=== PATIENT | female | born 1985 | race Caucasian/White ===

== ENCOUNTER 2018-05-08 10:13 | Inpatient (IN) | payer OTHER ==
[~2018-05-08] VITALS: Ht 170.2 cm; Wt 148.6 kg
[2018-05-08] MEDS: LACTATED RINGERS 1,000 ML IV SCH ×6 (10:19→23:12)
[2018-05-08] MEDS ORDERED: OXYTOCIN 30U/ 0.9% NaCL 500ML 500 ML IV SCH (10:19)
[2018-05-08] MEDS ORDERED: METOCLOPRAMIDE 5 MG/ML, 2ML IV ONE (10:30)
[2018-05-08] MEDS ORDERED: SODIUM CITRATE/CITRIC ACID 30 ML UDC PO ONE (10:30)
[2018-05-08] MEDS ORDERED: LACTATED RINGERS 1,000 ML IVBOLUS ONE (10:30)
[2018-05-08] MEDS ORDERED: LABETALOL 5MG/ML, 20ML ONE ×2 (10:59→14:51)
[2018-05-08] MEDS ORDERED: LABETALOL 5MG/ML, 20ML IVPush ONE (11:00)
[2018-05-08] MEDS ORDERED: PLEASE ENTER ALLERGIES MC SCH (11:00)
[2018-05-08] MEDS ORDERED: PLEASE ENTER HEIGHT AND WEIGHT MC SCH (11:00)
[2018-05-08 11:09] VITALS: BP 131/71
[2018-05-08 11:14] LABS: BASOPHILS % (AUTO) 0 % (0-1); EOSINOPHILS # (AUTO) 0.04 x10^3/uL (0-0.4); EOSINOPHILS % (AUTO) 1 % (1-7); LYMPHOCYTES # (AUTO) 1.05 x10^3/uL (1-3.4); LYMPHOCYTES % (AUTO) 12 % (22-44); MD NO; MEAN CORPUSCULAR HEMOGLOBIN 30.7 pg (27.0-34.8); MEAN CORPUSCULAR HGB CONC 33.7 g/dL (32.4-35.8); MEAN PLATELET VOLUME 9.5 fL (7.4-10.4); MONOCYTES # (AUTO) 0.64 x10^3/uL (0.2-0.8); MONOCYTES % (AUTO) 7 % (2-9); NEUTROPHILS # (AUTO) 6.86 x10^3/uL (1.8-6.8); NEUTROPHILS % (AUTO) 80 % (42-75); PLATELET COUNT 192 x10^3/uL (130-400); RED BLOOD COUNT 4.44 x10^6/uL (3.82-5.3); RED CELL DISTRIBUTION WIDTH 19.8 % (9.6-15.2)
[2018-05-08 11:26] LABS: ALBUMIN 2.5 g/dL (3.4-5.0); ANION GAP 6 mmol/L (5-15); CALCIUM 8.6 mg/dL (8.5-10.1); CHLORIDE 107 mmol/L (98-107)
[2018-05-08 11:30] LABS: ALANINE AMINOTRANSFERASE 33 U/L (12-78); ALKALINE PHOSPHATASE 127 U/L (45-117); BILIRUBIN, DIRECT 0.1 mg/dL (0.1-0.2); BILIRUBIN,TOTAL 0.5 mg/dL (0.2-1.0); CREATININE 0.57 mg/dL (0.55-1.02); TOTAL PROTEIN 6.4 g/dL (6.4-8.2)
[2018-05-08] MEDS ORDERED: PNV11TAB PO (11:42)
[2018-05-08] MEDS ORDERED: LABE100T6 PO (11:42)
[2018-05-08] MEDS ORDERED: OXYTOCIN 10 UNITS/ML, 1ML ONE (12:13)
[2018-05-08] MEDS ORDERED: CEFAZOLIN 1,000 MG ONE (12:13)
[2018-05-08] MEDS ORDERED: ONDANSETRON 2MG/ML, 2ML ONE (12:13)
[2018-05-08] MEDS ORDERED: FENTANYL PF 100 MCG/2ML ONE (12:14)
[2018-05-08] MEDS ORDERED: HYDROmorphone 2 MG/ML, 1ML ONE (12:14)
[2018-05-08] MEDS ORDERED: NEWBORN KIT ONE (12:16)
[2018-05-08] MEDS ORDERED: SODIUM CITRATE/CITRIC ACID 30 ML UDC ONE (12:16)
[2018-05-08] MEDS ORDERED: METOCLOPRAMIDE 5 MG/ML, 2ML ONE (12:16)
[2018-05-08] MEDS ORDERED: OXYTOCIN 30U/ 0.9% NaCL 500ML 500 ML ONE (12:17)
[2018-05-08] MEDS: OXYTOCIN 30U/ 0.9% NaCL 500ML 500 ML IV SCH ×2 (13:12→23:12)
[2018-05-08] MEDS ORDERED: CARBOPROST TROMETHAMINE 250 MCG/ML, 1ML IM PRN (13:30)
[2018-05-08] MEDS ORDERED: MISOPROSTOL 200 MCG TABLET PR PRN (13:30)
[2018-05-08] MEDS ORDERED: OXYcodone/APAP 5/325MG TABLET PO PRN (13:30)
[2018-05-08] MEDS ORDERED: ONDANSETRON 2MG/ML, 2ML IV PRN (13:30)
[2018-05-08] MEDS ORDERED: morphine SULFATE 10 MG/ML, 1ML IVPush PRN ×2 (13:30)
[2018-05-08] MEDS ORDERED: ACETAMINOPHEN 325 MG TABLET PO PRN (13:30)
[2018-05-08] MEDS ORDERED: EPHEDRINE 50 MG/ML, 1ML ONE (14:24)
[2018-05-08] MEDS ORDERED: LACTATED RINGERS 1,000 ML IV SCH (15:00)
[2018-05-08] MEDS ORDERED: niFEDipine ER 90 MG TAB.ER.24 ONE (15:12)
[2018-05-08] MEDS: niFEDipine ER 90 MG TAB.ER.24 PO SCH (15:17)
[2018-05-08] MEDS ORDERED: OXYcodone/APAP 5/325MG TABLET ONE (16:26)
[2018-05-08] MEDS: OXYcodone/APAP 5/325MG TABLET PO PRN ×2 (16:28→23:20)
[2018-05-08] MEDS ORDERED: morphine SULFATE 10 MG/ML, 1ML ONE (17:34)
[2018-05-08 18:09] VITALS: BP 166/92
[2018-05-08 18:30] VITALS: BP 149/95
[2018-05-08] MEDS: IBUPROFEN 600 MG TABLET PO PRN (18:36)
[2018-05-08] MEDS ORDERED: MISOPROSTOL 200 MCG TABLET ONE (18:54)
[2018-05-08 19:33] VITALS: BP 150/89
[2018-05-08] MEDS: LABETALOL 200 MG TABLET PO SCH (20:57)
[2018-05-08 21:00] VITALS: BP 137/82
[2018-05-08 22:54] LABS: BASOPHILS # (AUTO) 0.02 x10^3/uL (0-0.1); BASOPHILS % (AUTO) 0 % (0-1); EOSINOPHILS # (AUTO) 0.04 x10^3/uL (0-0.4); EOSINOPHILS % (AUTO) 1 % (1-7); LYMPHOCYTES % (AUTO) 12 % (22-44); MD NO; MEAN CORPUSCULAR HGB CONC 33.7 g/dL (32.4-35.8); MEAN CORPUSCULAR VOLUME 91.8 fL (80-100); MEAN PLATELET VOLUME 9.5 fL (7.4-10.4); MONOCYTES # (AUTO) 0.57 x10^3/uL (0.2-0.8); MONOCYTES % (AUTO) 6 % (2-9); NEUTROPHILS % (AUTO) 81 % (42-75); PLATELET COUNT 151 x10^3/uL (130-400); RED BLOOD COUNT 4.09 x10^6/uL (3.82-5.3); RED CELL DISTRIBUTION WIDTH 19.2 % (9.6-15.2)
[2018-05-08 23:37] VITALS: BP 138/87
[2018-05-09] MEDS: OXYcodone/APAP 5/325MG TABLET PO PRN ×3 (03:16→21:00)
[2018-05-09 03:20] VITALS: BP 140/90
[2018-05-09] MEDS: LACTATED RINGERS 1,000 ML IV SCH ×5 (04:30→21:12)
[2018-05-09] MEDS ORDERED: niFEDipine ER 60 MG TABLET.ER PO ONE (08:10)
[2018-05-09] MEDS ORDERED: niFEDipine ER 30 MG TABLET.ER ONE (08:11)
[2018-05-09 08:15] VITALS: BP 137/87
[2018-05-09] MEDS: niFEDipine ER 90 MG TAB.ER.24 PO SCH (08:17)
[2018-05-09] MEDS: IBUPROFEN 600 MG TABLET PO PRN ×3 (08:17→21:00)
[2018-05-09] MEDS: DOCUSATE 100 MG CAPSULE PO PRN ×2 (08:18→20:59)
[2018-05-09] MEDS: PRENATAL VIT/IRON/FA 1 EACH TABLET PO SCH (08:18)
[2018-05-09] MEDS: LABETALOL 200 MG TABLET PO SCH ×2 (08:18→21:00)
[2018-05-09] MEDS ORDERED: niFEDipine ER 90 MG TAB.ER.24 PO SCH (09:00)
[2018-05-09] MEDS: OXYTOCIN 30U/ 0.9% NaCL 500ML 500 ML IV SCH ×2 (09:12→19:12)
[2018-05-09 12:05] VITALS: BP 122/77
[2018-05-09] MEDS: OXYcodone IR 5MG TABLET PO PRN ×2 (12:31→16:51)
[2018-05-09 16:15] VITALS: BP 124/70
[2018-05-09 19:50] VITALS: BP 142/86
[2018-05-10 00:30] VITALS: BP 136/76
[2018-05-10] MEDS: IBUPROFEN 600 MG TABLET PO PRN ×2 (03:40→10:02)
[2018-05-10] MEDS: OXYcodone/APAP 5/325MG TABLET PO PRN ×2 (03:41→10:02)
[2018-05-10 04:00] VITALS: BP 143/93
[2018-05-10] MEDS: LACTATED RINGERS 1,000 ML IV SCH ×2 (05:12)
[2018-05-10] MEDS: OXYTOCIN 30U/ 0.9% NaCL 500ML 500 ML IV SCH (05:12)
[2018-05-10] MEDS ORDERED: OXYC-302 PO (07:10)
[2018-05-10] MEDS ORDERED: IBUP-1222 PO (07:10)
[2018-05-10] MEDS ORDERED: LABE200T6 PO (07:11)
[2018-05-10] MEDS ORDERED: SENN-52 PO (07:11)
[2018-05-10] MEDS ORDERED: NIFE90TA PO (07:12)
[2018-05-10] MEDS ORDERED: niFEDipine ER 30 MG TABLET.ER ONE (07:58)
[2018-05-10] MEDS ORDERED: niFEDipine ER 60 MG TABLET.ER PO ONE (07:58)
[2018-05-10 08:00] VITALS: BP 161/89
[2018-05-10] MEDS: LABETALOL 200 MG TABLET PO SCH (08:05)
[2018-05-10] MEDS: niFEDipine ER 90 MG TAB.ER.24 PO SCH (08:05)
[2018-05-10] MEDS: PRENATAL VIT/IRON/FA 1 EACH TABLET PO SCH (08:05)
[2018-05-10] MEDS: DOCUSATE 100 MG CAPSULE PO PRN (08:05)
[2018-05-10 08:58] VITALS: BP 145/82
== END 2018-05-10 12:40 | disposition home or self-care (01) | DRG 784 ==
LOC: LDIP 10:13 → UNDOADMIN 10:13 → LDIP 10:19 → 2NW 18:04
PROVIDERS: ADMIT Obstetrics & Gynecology; ATTEND Obstetrics & Gynecology
PROC: 10D00Z1 Extraction of Products of Conception, Low, Open Approach (ICD-10-PCS; principal; 2018-05-09)
PROC: 0UB70ZZ Excision of Bilateral Fallopian Tubes, Open Approach (ICD-10-PCS; 2018-05-09)
DX: O34.211 Maternal care for low transverse scar from previous cesarean delivery (principal); O10.92 Unspecified pre-existing hypertension complicating childbirth; Z68.43 Body mass index [BMI] 50.0-59.9, adult; O69.1XX0 Labor and delivery complicated by cord around neck, with compression, not applicable or unspecified; Z37.0 Single live birth; Z3A.38 38 weeks gestation of pregnancy; O99.89 Other specified diseases and conditions complicating pregnancy, childbirth and the puerperium; N73.6 Female pelvic peritoneal adhesions (postinfective); O99.214 Obesity complicating childbirth; E66.01 Morbid (severe) obesity due to excess calories
CPT/HCPCS: 36415; 80053; 82248; 82570; 82803; 84156; 84550; 85025; 86850; 86900; 88302; 90656; G0378; J0690; J1170; J2405; J3010; J2270; J2590; J2765; J7120